=== PATIENT | female | born 1995 | race Caucasian/White ===

== ENCOUNTER 2021-04-20 14:07 | Emergency (ER) | payer BC, OTHER ==
[~2021-04-20] VITALS: Ht 170.2 cm; Wt 59.0 kg
== END 2021-04-20 17:27 | disposition home or self-care (01) ==
LOC: ER 14:32
DX: S00.83XA Contusion of other part of head, initial encounter (principal); S80.01XA Contusion of right knee, initial encounter; W01.0XXA Fall on same level from slipping, tripping and stumbling without subsequent striking against object, initial encounter; Y93.01 Activity, walking, marching and hiking; F41.9 Anxiety disorder, unspecified
CPT/HCPCS: 70450; 70486; 72125; 99283